=== PATIENT | male | born 1945 | race Two or more races ===

== ENCOUNTER 2019-08-06 11:19 | Emergency (ER) | payer OTHER ==
[~2019-08-06] VITALS: Ht 190.5 cm; Wt 135.6 kg
--- NOTE | 2019-08-06 11:23 | NUR ---
BIBRA 860 FROM HOME FOR GLF C/O R THIGHT PAIN, -LOC, PATIENT STATED "I FELT DIZZY/LIGHTHEADED, I JUST BLACKED OUT AND FELL". TO ER BED 10, HOOKED TO MONITOR, CHANGED TO HOSPITAL GOWN, PROVIDED W WARM BLANKET, PATIENT AOx 4, BREATHING EVEN AND UNLABORED, DR DESAI AT BEDSIDE
[2019-08-06 11:48] LABS: BASOPHILS % (AUTO) 0.6 % (0.0-2.0); HEMATOCRIT 42 % (39-51); HEMOGLOBIN 13.8 g/dL (13.5-17.5); LYMPHOCYTES % (AUTO) 12.4 % (20.0-44.0); MEAN CORPUSCULAR HGB CONC 33 g/dl (31.0-36.0); MEAN CORPUSCULAR VOLUME 97 fL (80-96); MONOCYTES # (AUTO) 0.4 /CMM (0.1-1.30); MONOCYTES % (AUTO) 4.6 % (2.0-12.0); NEUTROPHILS # (AUTO) 6.5 /CMM (1.8-8.9); NEUTROPHILS % (AUTO) 81.4 % (43.0-81.0); PLATELET COUNT (AUTO) 170 /CMM (150-450); RED BLOOD CELL COUNT(AUTO) 4.29 MIL/uL (4.5-6.0)
[2019-08-06 11:54] LABS: CALCIUM, SERUM 8.9 mg/dL (8.5-10.1); CARBON DIOXIDE 24 mmol/L (21-32); CHLORIDE 105 mmol/L (98-107); CREATININE 1.2 mg/dL (0.6-1.3); GLUCOSE 211 mg/dL (74-106); POTASSIUM 4.6 mmol/L (3.5-5.1); SODIUM SERUM 139 mmol/L (136-145); UREA NITROGEN, BLOOD 22 mg/dL (7-18)
[2019-08-06 12:00] LABS: ALANINE AMINOTRANSFERASE 23 U/L (12-78); ALBUMIN 3.3 g/dL (3.4-5.0); ALCOHOL, BLOOD < 3 mg/dL (0-0); ALKALINE PHOSPHATASE 177 U/L (46-116); ASPARTATE AMINOTRANSFERASE 16 U/L (15-37); BILIRUBIN,DIRECT 0.1 mg/dL (0.0-0.2); BILIRUBIN,TOTAL 0.6 mg/dL (0.2-1.0); TOTAL PROTEIN, SERUM 6.4 g/dL (6.4-8.2)
[2019-08-06] MEDS ORDERED: IV NS 0.9% 500 ML BAG IV ONE (12:00)
--- NOTE | 2019-08-06 12:09 | NUR ---
lactic 3.1 dr damon aaware
--- NOTE | 2019-08-06 12:14 | NUR ---
URINE SAMPLE COLLECTED VIA STRAIGHT CATHETER. SAMPLE SENT TO LAB
[2019-08-06 12:17] LABS: APPEARANCE,URINE Clear (CLEAR); BILIRUBIN,URINE Negative (NEGATIVE); BLOOD, URINE Moderate Ery/uL (NEGATIVE); KETONES,URINE Negative (NEGATIVE); LEUKOCYTE ESTERASE ,URINE Negative (NEGATIVE); NITRITE, URINE Negative (NEGATIVE); PROTEIN,URINE Negative (NEGATIVE); UGLUCOSE 500 MG/DL mg/dL (NEGATIVE); UROBILINOGEN,URINE 0.2 EU/dL (0.2)
--- NOTE | 2019-08-06 12:17 | NUR ---
XRAY AT BEDSIDE
--- NOTE | 2019-08-06 12:35 | NUR ---
CALLED [facility], AWAITING MD TO MD CALL BACK
[2019-08-06 12:47] LABS: THYROID STIMULATING HORMONE 4.292 uIU/mL (0.358-3.74)
[2019-08-06 12:58] LABS: COLOR,URINE YELLOW (YELLOW)
[2019-08-06 13:04] LABS: BACTERIA,URINE Rare /HPF (None Seen); SQUAMOUS EPITHELIAL CELL,UR Rare /HPF (None Seen); WBC,URINE 0-2 /HPF (0-3)
[2019-08-06] MEDS ORDERED: ONDANSETRON HCL/PF 4 MG/2 ML VIAL ONE (13:07)
[2019-08-06] MEDS ORDERED: MORPHINE SULFATE INJ 4 MG/ML DISP.SYRIN ONE (13:08)
--- NOTE | 2019-08-06 13:13 | NUR ---
PAGED AMIRAH GRIGSBY FOR UPDATE
--- NOTE | 2019-08-06 13:16 | NUR ---
PATIENT REFUSED CT SCAN. MADE AWARE
--- NOTE | 2019-08-06 13:25 | NUR ---
MD MADE AWARE OF CURRENT BP, MD ORDERED TO HOLD OFF PAIN MEDICATION, RECEIVED VERBAL ORDER FOR NS 1L BOLUS. CARRIED OUT.
[2019-08-06] MEDS: MORPHINE SULFATE INJ 2 MG/ML DISP.SYRIN IV ONE ×2 (13:26→14:15)
[2019-08-06] MEDS: ONDANSETRON HCL/PF - ER 4 MG/2 ML VIAL IV ONE ×2 (13:27→14:15)
[2019-08-06] MEDS ORDERED: IV NS 0.9% 1,000 ML BAG IV ONE (13:30)
--- NOTE | 2019-08-06 13:53 | NUR ---
TRANSFER INFO: PT WILL GO TO [facility] ED, RN FOR REPORT [phone], AMBULANCE ETA 1430, DR CAPELLAN ACCEPTING
--- NOTE | 2019-08-06 13:56 | NUR ---
FAXED PICS OF FEMUR AND HIP TO DR GRIGSBY AT [place] [phone]
--- NOTE | 2019-08-06 14:12 | NUR ---
RECEIVED VERBAL ORDER FROM DR DESAI THAT IS OK TO GIVE MORPHINE BP 131/96MMHG. CARRIED OUT.
--- NOTE | 2019-08-06 14:56 | NUR ---
REPORT GIVEN TO [facility] OF [facility].
[2019-08-06 15:00] VITALS: BP 129/56
--- NOTE | 2019-08-06 15:10 | NUR ---
Patient picked up by [facility] ambulance [id number] in stable condition. Patient will be brought to [facility] ED. Report given to EMT. Patient signed transfer acknowledgement.
== END 2019-08-06 15:15 | disposition short-term general hospital (02) ==
LOC: ER 11:21
DX: S72.011A Unspecified intracapsular fracture of right femur, initial encounter for closed fracture (principal); R42 Dizziness and giddiness; I45.10 Unspecified right bundle-branch block; E87.2 Acidosis; R31.29 Other microscopic hematuria; E11.9 Type 2 diabetes mellitus without complications; I10 Essential (primary) hypertension; Z88.0 Allergy status to penicillin; Z88.5 Allergy status to narcotic agent; W18.39XA Other fall on same level, initial encounter; Y93.89 Activity, other specified; Y92.89 Other specified places as the place of occurrence of the external cause; Y99.8 Other external cause status
CPT/HCPCS: 36415; 71045; 73502; 73552; 80048; 80076; 80305; 80307; 81001; 83605; 84443; 84484; 85025; 85730; 87040 ×2; 93005; 96361; 96374; 96375; 99285; J2270; J2405 ×2; J7030; J7040; 81000-TC; G0480